=== PATIENT | male | born 1985 | race Caucasian/White ===

== ENCOUNTER 2017-10-23 22:13 | Emergency (ER) | payer SELFPAY ==
[2017-10-23 22:31] VITALS: BP 138/80; PULSE 93; TEMP 98.4; BMI 25.8
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
[2017-10-24] MEDS ORDERED: SODIUM CHLORIDE 0.9% 1000 ML INFUS.BAG IV ONE (01:05)
[2017-10-24 01:24] LABS: BASO % 0.3 % (0-2.0); EOS % 1.7 % (0-4.5); HEMATOCRIT 39.5 % (35.4-49); HEMOGLOBIN 13.1 GM/dL (11.7-16.9); LYMPH % 10.4 % (8-40); MCH 30.7 pg (25.7-33.7); MCHC 33.1 g/dl (32.0-35.9); MEAN CELL VOLUME 92.7 fl (80-96); MEAN PLT VOLUME 8.7 fl (7.5-11.1); MONO % 4.7 % (3.8-10.2); NEUT % 82.9 % (42.8-82.8); PLATELET COUNT 285 K/MM3 (134-434); RBC 4.26 M/mm3 (4.00-5.60); RDW 13.4 % (11.9-15.9); WHITE BLOOD COUNT 14.6 K/mm3 (4.0-10.0)
[2017-10-24 01:50] LABS: ALBUMIN 3.9 g/dl (3.4-5.0); ANION GAP 8 (8-16); BILIRUBIN,TOTAL 0.5 mg/dL (0.2-1.0); BLOOD UREA NITROGEN 11 mg/dL (7-18); CALCIUM 8.7 mg/dL (8.5-10.1); CHLORIDE 104 mmol/L (98-107); CO2 26 mmol/L (21-32); CREATININE 0.9 mg/dL (0.7-1.3); GLUCOSE,RANDOM 95 mg/dL (74-106); POTASSIUM 4.1 mmol/L (3.5-5.1); SGOT/AST 21 U/L (15-37); SGPT/ALT 24 U/L (12-78); SODIUM 138 mmol/L (136-145); TOT PROT 7.8 g/dl (6.4-8.2)
[2017-10-24 01:51] LABS: ALK PHOS 90 U/L (45-117)
[2017-10-24] MEDS ORDERED: AZITHROMYCIN 250 MG TABLET PO ONE (01:53)
[2017-10-24] MEDS ORDERED: AZITHROMYCIN 250 MG TABLET ONE (01:57)
--- NOTE | 2017-10-24 13:26 | EKG ---
Test Reason : Blood Pressure : / mmHG Vent. Rate : 066 BPM Atrial Rate : 066 BPM P-R Int : 166 ms QRS Dur : 088 ms QT Int : 400 ms P-R-T Axes : 048 050 032 degrees QTc Int : 419 ms NORMAL SINUS RHYTHM NORMAL ECG NO PREVIOUS ECGS AVAILABLE Confirmed by MD ANGEL, RAUDEL ([id number]) on 10/24/2017 1:26:23 PM Referred By: Confirmed By:RAUDEL ORTIZ MD
== END 2017-10-24 02:56 | disposition home or self-care (01) ==
LOC: JER 22:13
DX: F12.10 Cannabis abuse, uncomplicated (principal); J06.9 Acute upper respiratory infection, unspecified; F17.210 Nicotine dependence, cigarettes, uncomplicated
CPT/HCPCS: 36415; 71045-TC; 80053; 82272; 85025; 93005; 93010; 99283-25

== ENCOUNTER 2017-10-29 23:43 | Emergency (ER) | payer SELFPAY ==
--- NOTE | 2017-10-30 01:14 | PDOC ---
History of Present Illness - History of Present Illness Initial Comments: 10/30/17 01:21 Patient is a 32M who was here 1 week ago for similar complaint, presents with light-headness. Patient states that he is not feeling well and feels like he is going to faint. He presents with similar symptoms as his last ER visit on the of this month in which he was diagnosed with upper respiratory infection, given a z-pac and released. Today he states that his symptoms have worsened, and also endorses nausea without vomit, abdominal cramping without diarrhea. Denies any urinary complaints. Denies fevers. Admits to slight headache. Denies sick contacts Social Hx: marijuana use <Ning Ward - Last Filed: 10/30/17 01:21> - General History Source: Patient <Anish Guerrero - Last Filed: 10/30/17 05:57> - General Stated Complaint: NAUSEA/VOMITING Time Seen by Provider: 10/30/17 01:09 Past History <Ning Ward - Last Filed: 10/30/17 01:21> - Past Medical History COPD: No - Immunization History Immunization Up to Date: Yes - Suicide/Smoking/Psychosocial Hx Smoking History: Current every day smoker Have you smoked in the past 12 months: Yes Number of Cigarettes Smoked Daily: 2 Hx Alcohol Use: Yes Drug/Substance Use Hx: Yes Substance Use Type: None <Anish Guerrero - Last Filed: 10/30/17 05:57> - Past Medical History Allergies/Adverse Reactions: Allergies Allergy/AdvReac Type Severity Reaction Status Date / Time No Known Allergies Allergy Verified 10/30/17 02:43 Home Medications: Ambulatory Orders Azithromycin [Zithromax 250mg Tablets -] 250 mg PO UTDICT #6 tab 10/24/17 Meclizine HCl 25 mg PO TID #30 tablet 10/30/17 Review of Systems - Review of Systems Comments:: 10/30/17 01:27 CONSTITUTIONAL: Absent: fever, chills, diaphoresis, generalized weakness, malaise, loss of appetite HEENT: Absent: rhinorrhea, nasal congestion, throat pain, throat swelling, difficulty swallowing, mouth swelling, ear pain, eye pain, visual Changes CARDIOVASCULAR: Absent: chest pain, syncope, palpitations, irregular heart rate, lightheadedness , peripheral edema RESPIRATORY: Absent: cough, shortness of breath, dyspnea with exertion, orthopnea, wheezing, stridor, hemoptysis GASTROINTESTINAL: Present: abdominal cramping, nausea Absent: abdominal distension, vomiting, diarrhea, constipation, melena, hematochezia GENITOURINARY: Absent: dysuria, frequency, urgency, hesitancy, hematuria, flank pain, genital pain MUSCULOSKELETAL: Absent: myalgia, arthralgia, joint swelling SKIN: Absent: rash, itching, pallor ENDOCRINE: Absent: unexplained weight gain, unexplained weight loss, heat intolerance, cold intolerance NEUROLOGIC: Present: slight headache, light-headed Absent: focal weakness or paresthesias, unsteady gait, seizure, mental status changes, bladder or bowel incontinence <Ning Ward Last Filed: 10/30/17 01:21> *Physical Exam - Physical Exam Comments: 10/30/17 01:26 GENERAL: Well-appearing, well-nourished. Mild distress. HEENT: Normocephalic, atraumatic. PERRL, EOM intact. CARDIOVASCULAR: Normal S1, S2. Regular rate and rhythm. PULMONARY: Clear to auscultation bilaterally. ABDOMEN: Soft, non-distended, non-tender. EXTREMITIES: Normal ROM in all four extremities. No gross deformities. SKIN: Warm, dry. No rash NEUROLOGICAL: No focal neurological deficits. <Ning Ward Filed: 10/30/17 01:21> ED Treatment Course - LABORATORY CBC & Chemistry Diagram: 10/30/17 01:32 10/30/17 01:37 <Anish Guerrero Last Filed: 10/30/17 05:57> Medical Decision Making - Medical Decision Making 10/30/17 05:56 Dr. Guerrero: The scribe's documentation has been prepared under my direction and personally reviewed by me in its entirery. I confirm that the note above accurately reflects all work, treatment, procedures, and medical decision making performed by me. <Anish Guerrero Filed: 10/30/17 05:57> *DC/Admit/Observation/Transfer - Attestations Scribe Attestion: 10/30/17 01:29 Documentation prepared by Ning Ward, acting as medical science liaison for Anish Guerrero MD. <Ning Ward Filed: 10/30/17 01:21> - Discharge Dispostion Admit: No <CesarAnish - Last Filed: 10/30/17 05:57> Diagnosis at time of Disposition: Lightheaded, Vertigo - Discharge Dispostion Disposition: HOME Condition at time of disposition: Stable - Prescriptions Prescriptions: Meclizine HCl 25 mg PO TID #30 tablet - Referrals Referrals: Marie Rogers MD [Staff Physician] - - Patient Instructions Printed Discharge Instructions: DI for Vertigo Additional Instructions: take medication as directed. Drink plenty of fluids. have plenty of bed rest. Follow up with your doctor or the doctor provided in two days. Print Language: UZBEK - Post Discharge Activity Forms/Work/School Notes: Back to Work
[2017-10-30] MEDS ORDERED: SODIUM CHLORIDE 1,000 ML IV STA (01:17)
[2017-10-30] MEDS ORDERED: ONDANSETRON 4 MG/2 ML VIAL IVPUSH STA (01:18)
[2017-10-30 01:40] LABS: BASO % 0.9 % (0-2.0); EOS % 7.4 % (0-4.5); HEMATOCRIT 38.9 % (35.4-49); HEMOGLOBIN 13.2 GM/dL (11.7-16.9); LYMPH % 32.3 % (8-40); MCH 31.2 pg (25.7-33.7); MCHC 33.8 g/dl (32.0-35.9); MEAN CELL VOLUME 92.4 fl (80-96); MEAN PLT VOLUME 8.1 fl (7.5-11.1); NEUT % 48.4 % (42.8-82.8); PLATELET COUNT 265 K/MM3 (134-434); RBC 4.21 M/mm3 (4.00-5.60); WHITE BLOOD COUNT 6.8 K/mm3 (4.0-10.0)
[2017-10-30 01:58] LABS: INR 1.14 (0.82-1.09); PROTHROMBIN TIME (PATIENT) 12.9 SEC (9.98-11.88)
[2017-10-30 02:08] LABS: ALBUMIN 3.8 g/dl (3.4-5.0); ALK PHOS 86 U/L (45-117); ANION GAP 8 (8-16); BILIRUBIN,TOTAL 0.7 mg/dL (0.2-1.0); BLOOD UREA NITROGEN 11 mg/dL (7-18); CALCIUM 8.6 mg/dL (8.5-10.1); CHLORIDE 103 mmol/L (98-107); CO2 30 mmol/L (21-32); CREATININE 1.1 mg/dL (0.7-1.3); GLUCOSE,RANDOM 87 mg/dL (74-106); MAGNESIUM 2.1 mg/dL (1.8-2.4); POTASSIUM 3.8 mmol/L (3.5-5.1); SGOT/AST 17 U/L (15-37); SGPT/ALT 20 U/L (12-78); SODIUM 141 mmol/L (136-145); TOT PROT 7.4 g/dl (6.4-8.2)
[2017-10-30] MEDS ORDERED: ONDANSETRON 4 MG/2 ML VIAL ONE (02:23)
[2017-10-30 02:42] VITALS: BP 124/96; PULSE 60; TEMP 98.1; BMI 25.8
[2017-10-30] MEDS ORDERED: MECLIZINE HCL 25 MG TABLET (FP) PO STA (04:54)
[2017-10-30] MEDS ORDERED: MECLIZINE HCL 25 MG TABLET (FP) ONE (05:13)
== END 2017-10-30 06:27 | disposition home or self-care (01) ==
LOC: JER 23:43
PROC: 3E033GC Introduction of Other Therapeutic Substance into Peripheral Vein, Percutaneous Approach (ICD-10-PCS; principal; 2017-10-29)
PROC: 3E0337Z Introduction of Electrolytic and Water Balance Substance into Peripheral Vein, Percutaneous Approach (ICD-10-PCS; 2017-10-29)
DX: R42 Dizziness and giddiness (principal); F17.210 Nicotine dependence, cigarettes, uncomplicated
CPT/HCPCS: 36415; 70450-TC; 80053; 83735; 85025; 85610; 87804; 99282-25

== ENCOUNTER 2018-02-28 20:20 | Emergency (ER) | payer SELFPAY ==
[2018-02-28 20:36] VITALS: BP 150/89; PULSE 69; TEMP 98.7; BMI 29.0
[2018-02-28] MEDS ORDERED: SODIUM CHLORIDE 1,000 ML IV STA (20:50)
[2018-02-28] MEDS ORDERED: ACETAMINOPHEN 1000 MG/100 ML VIAL (NON FORMULARY) IVPB ONE (20:50)
[2018-02-28] MEDS ORDERED: METOCLOPRAMIDE HCL INJECTION 10 MG/2 ML VIAL IVPUSH ONE (20:50)
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
[2018-02-28] MEDS ORDERED: METOCLOPRAMIDE HCL INJECTION 10 MG/2 ML VIAL ONE (21:10)
[2018-02-28] MEDS ORDERED: ACETAMINOPHEN INJECTION 100 ML IVPB ONE (21:11)
[2018-02-28 21:45] LABS: BASO % 0.3 % (0-2.0); EOS % 5.1 % (0-4.5); HEMATOCRIT 38.1 % (35.4-49); HEMOGLOBIN 13.1 GM/dL (11.7-16.9); LYMPH % 24.9 % (8-40); MCH 31.4 pg (25.7-33.7); MCHC 34.2 g/dl (32.0-35.9); MEAN CELL VOLUME 91.8 fl (80-96); MEAN PLT VOLUME 9.2 fl (7.5-11.1); MONO % 6.9 % (3.8-10.2); NEUT % 62.8 % (42.8-82.8); PLATELET COUNT 237 K/MM3 (134-434); RBC 4.15 M/mm3 (4.00-5.60); RDW 13.1 % (11.9-15.9); WHITE BLOOD COUNT 8.5 K/mm3 (4.0-10.0)
[2018-02-28 22:01] LABS: ALBUMIN 3.9 g/dl (3.4-5.0); ANION GAP 9 (8-16); BILIRUBIN,TOTAL 0.5 mg/dL (0.2-1.0); BLOOD UREA NITROGEN 13 mg/dL (7-18); CALCIUM 8.3 mg/dL (8.5-10.1); CHLORIDE 106 mmol/L (98-107); CO2 24 mmol/L (21-32); CREATININE 0.9 mg/dL (0.7-1.3); GLUCOSE,RANDOM 82 mg/dL (74-106); MAGNESIUM 2.3 mg/dL (1.8-2.4); POTASSIUM 3.8 mmol/L (3.5-5.1); SGOT/AST 27 U/L (15-37); SGPT/ALT 21 U/L (12-78); SODIUM 139 mmol/L (136-145); TOT PROT 7.4 g/dl (6.4-8.2)
[2018-02-28 22:04] LABS: ALK PHOS 90 U/L (45-117)
[2018-02-28 22:21] LABS: INR 1.08 (0.82-1.09); PROTHROMBIN TIME (PATIENT) 12.2 SEC (9.7-13.0)
[2018-02-28 22:23] LABS: ACTIVATED PTT 47.5 SECONDS (26.9-34.4)
--- NOTE | 2018-03-01 10:13 | EKG ---
Test Reason : Blood Pressure : / mmHG Vent. Rate : 062 BPM Atrial Rate : 062 BPM P-R Int : 176 ms QRS Dur : 088 ms QT Int : 408 ms P-R-T Axes : 035 035 026 degrees QTc Int : 414 ms NORMAL SINUS RHYTHM POSSIBLE LEFT ATRIAL ENLARGEMENT BORDERLINE ECG WHEN COMPARED WITH ECG OF 24-OCT-2017 01:16, NO SIGNIFICANT CHANGE WAS FOUND Confirmed by ELHAM BOCANEGRA MD ([id number]) on 03/01/2018 10:13:23 AM Referred By: Confirmed By:ELHAM BOCANEGRA MD
== END 2018-03-01 00:09 | disposition home or self-care (01) ==
LOC: JER 20:20
PROC: 3E0337Z Introduction of Electrolytic and Water Balance Substance into Peripheral Vein, Percutaneous Approach (ICD-10-PCS; principal; 2018-02-28)
PROC: 3E033NZ Introduction of Analgesics, Hypnotics, Sedatives into Peripheral Vein, Percutaneous Approach (ICD-10-PCS; 2018-02-28)
PROC: 3E033GC Introduction of Other Therapeutic Substance into Peripheral Vein, Percutaneous Approach (ICD-10-PCS; 2018-02-28)
DX: R00.2 Palpitations (principal); E86.0 Dehydration
CPT/HCPCS: 36415; 70450-TC; 71045-TC-FY; 80053; 82550; 82553; 83735; 84484; 85025; 85379; 85610; 85730; 93005; 93010; 99283-25; J0131; J7030

== ENCOUNTER 2018-03-10 14:19 | Emergency (ER) | payer SELFPAY ==
[2018-03-10 14:29] VITALS: TEMP 97.9; BMI 24.2
--- NOTE | 2018-03-10 14:49 | PDOC ---
History of Present Illness - General Chief Complaint: Headache Stated Complaint: Headache Time Seen by Provider: 03/10/18 14:46 - History of Present Illness Initial Comments: 03/10/18 15:49 The patient is a 33 year old male with a history of migraines who presents for evaluation of headache. The patient reports a 4 day history of worsening right sided throbbing headache with associated numbness and tingling to the right sided of his face and right arm prompting his presentation to the ED today for further evaluation. He notes that the headache was preceded by flashing lights within his visual espinal. He notes multiple episodes of non-bilious, non- bloody vomiting as well. He otherwise denies fevers, chills, SOB, chest pain, abdominal pain, weakness, or changes with urination or bowel movements. Past History - Past Medical History Allergies/Adverse Reactions: Allergies Allergy/AdvReac Type Severity Reaction Status Date / Time No Known Allergies Allergy Verified 03/10/18 14:27 Home Medications: Ambulatory Orders NK [No Known Home Medication] 02/28/18 COPD: No - Immunization History Immunization Up to Date: Yes - Suicide/Smoking/Psychosocial Hx Smoking History: Current some day smoker Have you smoked in the past 12 months: Yes Number of Cigarettes Smoked Daily: 2 Information on smoking cessation initiated: No Hx Alcohol Use: Yes Drug/Substance Use Hx: Yes Substance Use Type: None Review of Systems - Review of Systems Comments:: 03/10/18 15:56 Constitutional: No fevers, chills, fatigue, malaise HEENT: No Rhinorrhea, nasal congestion, visual changes Cardiovascular: No chest pain, syncope, palpitations, lightheadedness Respiratory: No Cough, SOB, Hemoptysis, Gastrointestinal: No Abdominal pain, Nausea, Vomiting, Constipation, Diarrhea, Melena Genitourinary: No Dysuria, Frequency, Urgency, Hesitancy, Hematuria, Flank pain Musculoskeletal: No Myalgia, arthralgia Skin: No rashes, itching, bruising, pallor Neurologic: Headache, Tingling, Numbness. No Dizziness, Weakness, Psychiatric: No Hallucinations. No SI or HI *Physical Exam - Vital Signs Last Vital Signs Temp Pulse Resp BP Pulse Ox 97.9 F 68 18 137/103 100 03/10/18 14:27 03/10/18 14:27 03/10/18 14:27 03/10/18 14:27 03/10/18 14:27 - Physical Exam Comments: 03/10/18 15:56 General Appearance: Nourished. In Mild Apparent Distress HEENT: EOMI, GEMA. No Pharyngeal Erythema, Tonsillar Exudate, Tonsillar Erythema Neck: No Cervical Lymphadenopathy Respiratory/Chest: Lungs Clear, Normal Breath Sounds. No Crackles, Rales, Rhonchi, Wheezing Cardiovascular: Regular Rhythm, Regular Rate. No Murmur, Gallops, Rubs Gastrointestinal/Abdominal: Normal Bowel Sounds, Soft. No Guarding, Rebound, Tenderness Musculoskeletal: No CVA Tenderness Extremity: Normal Capillary Refill Integumentary: Normal Color, Dry, Warm Neurologic: folder machine II-XII NML intact, Fully Oriented, Alert, Normal Mood/Affect, Normal Response, Motor Strength 5/5. Normal Finger to Nose and Heel to Hua ED Treatment Course - LABORATORY CBC & Chemistry Diagram: 03/10/18 15:05 03/10/18 15:05 Medical Decision Making - Medical Decision Making 03/10/18 15:57 The patient is a 33 year old male with a history of migraines who presents for evaluation of headache. Differential includes but is not limited to: Migraine Headache, Intracranial process, Infectious, Metabolic derangement. Given the patient's history and physical exam, we will obtain a cbc, cmp, head ct to evaluate further and treat the patient with iv fluids, reglan, benadryl, and iv tylenol in the meantime. We will continue to monitor and reassess while here in the ED. 03/10/18 17:04 CBC, cmp are unremarkable. Head CT is unremarkable as read by our radiologist. The patient reports significant improvement in his symptoms. We are comfortable discharging the patient home with neurology follow up. We discussed the results, plan, and return precautions with the patient who voiced understanding and is agreeable with the plan. *DC/Admit/Observation/Transfer Diagnosis at time of Disposition: Headache Qualifiers: Headache type: unspecified Headache chronicity pattern: unspecified pattern Intractability: not intractable Qualified Code(s): R51 - Headache - Discharge Dispostion Disposition: HOME Condition at time of disposition: Stable Decision to Admit order: No - Referrals Referrals: Bon Malagon MD [Staff Physician] - - Patient Instructions Printed Discharge Instructions: DI for Migraine Additional Instructions: Please return to the ER if you experience concerning or worsening symptoms including worsening headache, vomiting or weakness. Your lab results and imaging studies were normal here in the ER. It is important that you call to schedule a follow up appointment with our neurologist Dr. Malagon within 2-3 days to discuss your ER visit and further management of your symptoms. - Post Discharge Activity
[2018-03-10] MEDS ORDERED: SODIUM CHLORIDE 1,000 ML IV STA (14:55)
[2018-03-10] MEDS ORDERED: METOCLOPRAMIDE HCL INJECTION 10 MG/2 ML VIAL IVPUSH ONE (14:59)
[2018-03-10] MEDS ORDERED: ACETAMINOPHEN 1000 MG/100 ML VIAL (NON FORMULARY) IVPB ONE (14:59)
[2018-03-10] MEDS ORDERED: ACETAMINOPHEN INJECTION 100 ML IVPB ONE (15:08)
[2018-03-10] MEDS ORDERED: METOCLOPRAMIDE HCL INJECTION 10 MG/2 ML VIAL ONE (15:08)
[2018-03-10 15:21] LABS: BASO % 0.5 % (0-2.0); EOS % 0.6 % (0-4.5); HEMATOCRIT 41.5 % (35.4-49); HEMOGLOBIN 14.4 GM/dL (11.7-16.9); LYMPH % 18.5 % (8-40); MCH 32.1 pg (25.7-33.7); MCHC 34.8 g/dl (32.0-35.9); MEAN CELL VOLUME 92.5 fl (80-96); MEAN PLT VOLUME 8.8 fl (7.5-11.1); NEUT % 73.4 % (42.8-82.8); PLATELET COUNT 286 K/MM3 (134-434); RBC 4.48 M/mm3 (4.00-5.60); RDW 13.5 % (11.9-15.9); WHITE BLOOD COUNT 8.6 K/mm3 (4.0-10.0)
[2018-03-10 15:48] LABS: ALBUMIN 4.5 g/dl (3.4-5.0); ANION GAP 8 (8-16); BILIRUBIN,TOTAL 0.6 mg/dL (0.2-1.0); BLOOD UREA NITROGEN 12 mg/dL (7-18); CHLORIDE 104 mmol/L (98-107); CO2 26 mmol/L (21-32); GLUCOSE,RANDOM 96 mg/dL (74-106); POTASSIUM 3.6 mmol/L (3.5-5.1); SGOT/AST 19 U/L (15-37); SGPT/ALT 23 U/L (12-78); SODIUM 138 mmol/L (136-145); TOT PROT 8.1 g/dl (6.4-8.2)
[2018-03-10 15:49] LABS: ALK PHOS 85 U/L (45-117)
[2018-03-10] MEDS ORDERED: KETOROLAC TROMETHAMINE 30 MG/1 ML VIAL IVPUSH ONE (17:58)
[2018-03-10] MEDS ORDERED: KETOROLAC TROMETHAMINE 30 MG/1 ML VIAL ONE (18:03)
[2018-03-10 18:24] VITALS: BP 114/63; PULSE 61
--- NOTE | 2018-03-10 19:09 | PDOC ---
Attending Attestation - Resident Resident Name: Lucas Kowalski - ED Attending Attestation I have performed the following: I have examined & evaluated the patient, The case was reviewed & discussed with the resident, I agree w/resident's findings & plan, Exceptions are as noted <Lynette Rios - Last Filed: 03/10/18 19:09> - HPI HPI: 03/10/18 19:10 The patient is a 33 year old male, with a significant PMH of migraines, who presents to the emergency department with progressively worsening headache beginning four days ago. The patient states the headache began gradually but has been progressively worsening since Friday. The patient states he has also experienced right sided facial numbness and right arm numbness secondary to the headache which he states is unusual of his typical headaches. The patient endorses multiple episodes of nausea with vomiting (non bloody, non bilious) secondary to the headache and states he was unable to tolerate food today which prompted the ED visit. The patient also endorses photophobia and phonophobia. The patient denies chest pain, shortness of breath and dizziness. Denies fever, chills, diarrhea and constipation. Denies dysuria, frequency, urgency and hematuria. Allergies: NKA <Bernardo Ramirez - Last Filed: 03/10/18 19:11> Attestations - Attestations 03/10/18 19:11 Documentation prepared by Bernardo Ramirez, acting as medical lead for Lynette Rios MD. <Bernardo Ramirez - Last Filed: 03/10/18 19:11>
== END 2018-03-10 18:24 | disposition home or self-care (01) ==
LOC: JER 14:19
DX: G43.909 Migraine, unspecified, not intractable, without status migrainosus (principal)
CPT/HCPCS: 36415; 70450-TC; 80053; 85025; 99283-25; J0131; J7030

== ENCOUNTER 2018-07-01 23:07 | Emergency (ER) | payer SELFPAY ==
--- NOTE | 2018-07-01 23:20 | PDOC ---
History of Present Illness - General Stated Complaint: CHEST PAIN Time Seen by Provider: 07/01/18 23:20 History Source: Patient - History of Present Illness Initial Comments: 07/01/18 23:38 Patient is a 33 year old male with no reported PMH who presents to the ED c/o photophobia, lightheadedness and chest pain following ingestion of an unknown pill. Patient states he was having back pain since Friday, so he took a pill given to him by his friend around 5:30 p.m. this evening. At approximately 8 p.m. patient started noticing some sensitivity to light, and felt weak. Patient subsequently felt some chest pain so he came to the ED. Patient denies shortness of breath, abdominal pain, diarrhea/constipation, dysuira/hematuria, recent travel or sick contacts. NKDA Surgical: denies Social: denies toxic habits PMD: None Past History - Past Medical History Allergies/Adverse Reactions: Allergies Allergy/AdvReac Type Severity Reaction Status Date / Time naproxen Allergy Verified 07/02/18 00:13 diphenhydramine AdvReac Verified 07/02/18 01:23 [From Benadryl] Home Medications: Ambulatory Orders Albuterol Sulfate Inhaler - [Ventolin HFA Inhaler -] 1 puff IH PRN PRN #1 inhaler 07/02/18 EPINEPHrine (EPI-PEN 0.3MG) [Epipen 0.3MG -] 0.3 mg IM ASDIR #2 pens 07/02/18 Prednisone [Deltasone] 40 mg PO DAILY #4 tablet 07/02/18 COPD: No - Immunization History Immunization Up to Date: Yes - Suicide/Smoking/Psychosocial Hx Smoking History: Current some day smoker Have you smoked in the past 12 months: Yes Number of Cigarettes Smoked Daily: 2 Hx Alcohol Use: Yes Drug/Substance Use Hx: Yes Substance Use Type: None Review of Systems - Review of Systems Constitutional: No: Chills, Fever HEENTM: No: Blurred Vision, Double Vision Respiratory: Yes: Cough. No: Shortness of Breath, Stridor, Wheezing Cardiac (ROS): No: Chest Pain, Lightheadedness, Palpitations, Syncope ABD/GI: No: Constipated, Diarrhea, Nausea, Vomiting : No: Burning, Dysuria *Physical Exam - Physical Exam General Appearance: Yes: Nourished, Appropriately Dressed HEENT: positive: EOMI, GEMA Neck: positive: Trachea midline, Supple Respiratory/Chest: positive: Wheezing. negative: Labored Respiration, Crackles , Rales Cardiovascular: positive: S1, S2. negative: Edema, JVD Vascular Pulses: Dorsalis-Pedis (R): 2+, Doralis-Pedis (L): 2+ Gastrointestinal/Abdominal: positive: Normal Bowel Sounds, Soft ED Treatment Course - LABORATORY CBC & Chemistry Diagram: 07/01/18 23:42 07/01/18 23:42 Medical Decision Making - Medical Decision Making 07/02/18 00:10 33 year old male with chest pain following Naproxen ingestion. PE significant for B/L wheezing. Will give Steroids, Benadryl for presumed allergic reaction and obtain Troponin x1 and ECG to r/o ACS -- though less likely. Reassess. 07/02/18 00:41 Troponin (-) x1 ECG shows HR 74, NSR TWI in V2 -- not consistent with prior ECG dated 2017. 07/02/18 01:15 Patient s/p Duo Neb x1, continues to wheeze, will administer another treatment and reassess. Plan is for discharge home with 4 day course of steroids. *DC/Admit/Observation/Transfer Diagnosis at time of Disposition: Allergic reaction - Discharge Dispostion Disposition: HOME Condition at time of disposition: Stable Decision to Admit order: No - Prescriptions Prescriptions: Albuterol Sulfate Inhaler - [Ventolin HFA Inhaler -] 1 puff IH PRN PRN #1 inhaler PRN Reason: Short Of Breath/Wheezing EPINEPHrine (EPI-PEN 0.3MG) [Epipen 0.3MG -] 0.3 mg IM ASDIR #2 pens Prednisone [Deltasone] 40 mg PO DAILY #4 tablet - Referrals - Patient Instructions Printed Discharge Instructions: DI for General Allergic Reactions Additional Instructions: You were evaluated today for an reaction to a Naproxen (also called Aleve, Naprosyn) tablet. You may also have an allergy to Benadryl (also called Diphenhydramine). Please check medication labels carefully and refrain from taking these medications in the future. At this time you are safe for discharge. We have sent a prescription to your pharmacy for steroids - please complete the entire prescribed course. We have also prescribed an inhaler (use as necessary for shortness of breath) and an Epi pen (use if you have an allergic reaction) Return to the Emergency Department for any/new/worsening symptoms. Usted fue evaluado hoy para susan reaccin a susan tableta Naproxen (tambin llamaGarrett Caraballo). Tambin puede ser alrgico al Benadryl (tambin llamado Diphenhydramine). Por favor revise cuidadosamente las etiquetas de los medicamentos y evite heather estos medicamentos en el futuro. En lazaro momento, ests a mahesh para la descarga. Hemos enviado susan receta a mercedes farmacia para obtener esteroides. Complete el curso completo. Tambin le hemos recetado un inhalador (use segn sea necesario para la falta de aliento) y un bolgrafo Epi (use si tiene susan reaccin alrgica ) Regrese al Departamento de Emergencia para cualquier sntoma / nuevo / empeoramiento de los sntomas. Print Language: ITALIAN - Post Discharge Activity
[2018-07-01] MEDS ORDERED: SODIUM CHLORIDE 0.9% 500 ML INFUS.BAG IV ONE (23:33)
[2018-07-01] MEDS ORDERED: FAMOTIDINE 20 MG/50 ML IVPB 20 MG/50 ML MG IVPB ONE (23:33)
[2018-07-01 23:39] VITALS: PULSE 89; TEMP 98.5; BMI 32.5
[2018-07-01] MEDS ORDERED: ACETAMINOPHEN 1000 MG/100 ML VIAL (NON FORMULARY) IVPB ONE (23:39)
[2018-07-01] MEDS ORDERED: ACETAMINOPHEN INJECTION 100 ML IVPB ONE (23:50)
[2018-07-01 23:53] LABS: BASO % 0.3 % (0-2.0); EOS % 3.5 % (0-4.5); HEMATOCRIT 40.1 % (35.4-49); HEMOGLOBIN 13.3 GM/dL (11.7-16.9); MCH 31.3 pg (25.7-33.7); MCHC 33.1 g/dl (32.0-35.9); MEAN CELL VOLUME 94.6 fl (80-96); MEAN PLT VOLUME 7.9 fl (7.5-11.1); MONO % 6.1 % (3.8-10.2); NEUT % 78.1 % (42.8-82.8); PLATELET COUNT 264 K/MM3 (134-434); RBC 4.24 M/mm3 (4.00-5.60); RDW 13.1 % (11.9-15.9); WHITE BLOOD COUNT 11.7 K/mm3 (4.0-10.0)
[2018-07-02] MEDS ORDERED: FAMOTIDINE 20 MG/50 ML IVPB 20 MG/50 ML MG IVPB ONE (00:07)
[2018-07-02] MEDS ORDERED: ALBUTEROL SO4 2.5/IPRATROPIUM 0.5 INH SOL 3 ML VIAL.NEB. NEB ONE ×4 (00:07→01:16)
[2018-07-02] MEDS ORDERED: methylPREDNISolone NA SUCC 125 MG/2 ML VIAL IVPB ONE (00:08)
--- NOTE | 2018-07-02 00:10 | PDOC ---
Attending Attestation - Resident Resident Name: Bozena Mosher - ED Attending Attestation I have performed the following: I have examined & evaluated the patient, The case was reviewed & discussed with the resident, I agree w/resident's findings & plan, Exceptions are as noted - HPI HPI: 07/01/18 23:55 The patient is a 33 year old male with a past medical history of migraines who presents to the emergency department with chest pain and SOB. As per patient, he had back pain today after lifting something heavy at work. He took a Naproxen 500mg at 5:30pm. He has never taken this medication before. He notes that at 8pm, he began to have pain localized under the left breast as well as coughing and SOB. He denies any rash anywhere on his body. States that he also vomited once after taking the pill. Denies swelling of his tongue or lips. He denies any recent fevers, chills, headache or dizziness. He denies any recent dysuria, frequency, urgency or hematuria. Allergies: NKA Past surgical history: None reported. Social History: Occasional smoker. Occasional marijuana usage. - Physicial Exam PE: 07/02/18 00:09 GENERAL: Awake, alert, and fully oriented, in no acute distress. HEAD: No signs of trauma EYES: PERRLA, EOMI, sclera anicteric, conjunctiva clear ENT: Auricles normal inspection, hearing grossly normal, nares patent, oropharynx clear without exudates. Moist mucosa NECK: Nontender, no stepoffs, Normal ROM, supple, no lymphadenopathy, JVD, or masses LUNGS: + bilateral expiratory wheezes HEART: Regular rate and rhythm, normal S1 and S2, no murmurs, rubs or gallops ABDOMEN: Soft, nontender, normoactive bowel sounds. No guarding, no rebound. No masses EXTREMITIES: Normal range of motion, no edema. No clubbing or cyanosis. No cords, erythema, or tenderness NEUROLOGICAL: Cranial nerves II through XII intact. 5/5 strength and sensation in all extremities, Normal speech, normal gait, normal cerebellar function SKIN: Warm, Dry, normal turgor, no rashes or lesions noted. - Medical Decision Making 07/02/18 00:10 33 M with chest pain + SOB and vomiting after taking naproxen. Found to have wheezing on exam. Possible allergic reaction, as pt has never taken this medication before. - Labs - CXR - Benadryl, prednisone, nebulizers 07/02/18 02:02 Labs wnl CXR clear Pt reassessed - now with clear lungs - states he feels much better Will DC with prednisone, albuterol, and epi pen Instructed to avoid naproxen
[2018-07-02] MEDS ORDERED: methylPREDNISolone NA SUCC 125 MG/2 ML VIAL ONE (00:13)
[2018-07-02 00:30] LABS: ALBUMIN 3.8 g/dl (3.4-5.0); ALK PHOS 84 U/L (45-117); ANION GAP 7 MMOL/L (8-16); BILIRUBIN,TOTAL 0.4 mg/dL (0.2-1); BLOOD UREA NITROGEN 11 mg/dL (7-18); CALCIUM 8.5 mg/dL (8.5-10.1); CHLORIDE 104 mmol/L (98-107); CO2 26 mmol/L (21-32); GLUCOSE,RANDOM 87 mg/dL (74-106); POTASSIUM 3.8 mmol/L (3.5-5.1); SGOT/AST 23 U/L (15-37); SGPT/ALT 20 U/L (13-61); SODIUM 137 mmol/L (136-145); TOT PROT 7.1 g/dl (6.4-8.2)
[2018-07-02 02:30] VITALS: BP 110/78
--- NOTE | 2018-07-02 09:35 | EKG ---
Test Reason : Blood Pressure : / mmHG Vent. Rate : 074 BPM Atrial Rate : 074 BPM P-R Int : 168 ms QRS Dur : 086 ms QT Int : 404 ms P-R-T Axes : 053 038 032 degrees QTc Int : 448 ms NORMAL SINUS RHYTHM POSSIBLE LEFT ATRIAL ENLARGEMENT BORDERLINE ECG WHEN COMPARED WITH ECG OF 28-FEB-2018 21:09, NO SIGNIFICANT CHANGE WAS FOUND Confirmed by SAQIB SELBY MD ([id number]) on 07/02/2018 9:34:35 AM Referred By: Confirmed By:SAQIB SELBY MD
== END 2018-07-02 02:14 | disposition home or self-care (01) ==
LOC: JER 23:07
PROC: 3E0F7GC Introduction of Other Therapeutic Substance into Respiratory Tract, Via Natural or Artificial Opening (ICD-10-PCS; principal; 2018-07-01)
PROC: 3E0F7GC Introduction of Other Therapeutic Substance into Respiratory Tract, Via Natural or Artificial Opening (ICD-10-PCS; 2018-07-01)
PROC: 3E033GC Introduction of Other Therapeutic Substance into Peripheral Vein, Percutaneous Approach (ICD-10-PCS; 2018-07-01)
PROC: 3E033GC Introduction of Other Therapeutic Substance into Peripheral Vein, Percutaneous Approach (ICD-10-PCS; 2018-07-01)
PROC: 3E033NZ Introduction of Analgesics, Hypnotics, Sedatives into Peripheral Vein, Percutaneous Approach (ICD-10-PCS; 2018-07-01)
PROC: 3E0333Z Introduction of Anti-inflammatory into Peripheral Vein, Percutaneous Approach (ICD-10-PCS; 2018-07-01)
DX: R07.89 Other chest pain (principal); R06.2 Wheezing; T39.315A Adverse effect of propionic acid derivatives, initial encounter
CPT/HCPCS: 36415; 71046-TC-FY; 80053; 82550; 84484; 85025; 93005; 93010; 99282-25; J0131; J7620

== ENCOUNTER 2018-07-16 18:45 | Emergency (ER) | payer SELFPAY ==
[2018-07-16] MEDS ORDERED: ALBUTEROL SO4 2.5/IPRATROPIUM 0.5 INH SOL 3 ML VIAL.NEB. NEB ONE (19:34)
--- NOTE | 2018-07-16 19:37 | PDOC ---
Rapid Medical Evaluation Time Seen by Provider: 07/16/18 19:31 Medical Evaluation: Allergies Allergy/AdvReac Type Severity Reaction Status Date / Time naproxen Allergy Verified 07/02/18 00:13 diphenhydramine AdvReac Verified 07/02/18 01:23 [From Caprice] 07/16/18 19:34 The patient complaints of: difficulty breathing, weakness, and left sided chest pain On brief exam: anxious appearing, mild exp wheeze to left base, no reproducible cp The patient was ordered for: duoneb, ekg, cxr The patient will proceed to the ED Discharge Disposition - Diagnosis Chest pain - Referrals - Patient Instructions - Post Discharge Activity
[2018-07-16 19:40] VITALS: BMI 30.7
[2018-07-16] MEDS ORDERED: ACETAMINOPHEN 500 MG TABLET (FP) PO ONE (21:56)
--- NOTE | 2018-07-16 22:01 | PDOC ---
History of Present Illness - General Chief Complaint: Chest Pain Stated Complaint: PAIN, ACUTE Time Seen by Provider: 07/16/18 19:31 - History of Present Illness Initial Comments: 33 year old male with PMH of cigarette smoking and daily marijuana use presenting with two months of intermittent left sided chest pain and occasional visual symptoms. Patient states that all of these symptoms started a few months prior with a headache where he noticed numbness and tingling of his right arm. He came to our ED and had WNL labs with a negative head CT. Since then he has had similar symptoms and has been to our ED as well as other EDs a few times for evaluation without any known positive findings. Describes his current chest pain as intermittent, occasionally worse when moving, non radiating, occasionally worse with a deep breath, and not disturbing his sleep or daily activities. States that he sometimes feel a little funny and sees floaters across his eyes. Has not syncopizewd or fallen but has had to sit down a few times. He admitted originally to daily marijuana use but denied any other rug use. However, he later admitted to cocaine usage when pushed. States that he had "one bump" yesterday. Patient denies fevers, chills, nausea, vomiting, diarrhea, current headache. No recent travel or long periods of travel. 07/16/18 21:55 Past History - Past Medical History Allergies/Adverse Reactions: Allergies Allergy/AdvReac Type Severity Reaction Status Date / Time naproxen Allergy Verified 07/16/18 19:40 diphenhydramine AdvReac Verified 07/16/18 19:40 [From Benadryl] Home Medications: Ambulatory Orders Albuterol Sulfate Inhaler - [Ventolin HFA Inhaler -] 1 puff IH PRN PRN #1 inhaler 07/02/18 EPINEPHrine (EPI-PEN 0.3MG) [Epipen 0.3MG -] 0.3 mg IM ASDIR #2 pens 07/02/18 Prednisone [Deltasone] 40 mg PO DAILY #4 tablet 07/02/18 COPD: No - Immunization History Immunization Up to Date: Yes - Suicide/Smoking/Psychosocial Hx Smoking History: Current some day smoker Have you smoked in the past 12 months: Yes Number of Cigarettes Smoked Daily: 2 Information on smoking cessation initiated: No 'Breaking Loose' booklet given: 07/01/18 Hx Alcohol Use: Yes Drug/Substance Use Hx: Yes Substance Use Type: None, Marijuana Review of Systems - Review of Systems Constitutional: No: Diaphoresis, Fever, Loss of Appetite HEENTM: No: Eye Pain, Blurred Vision, Tearing Respiratory: No: Cough, Orthopnea, Shortness of Breath Cardiac (ROS): Yes: Chest Pain. No: Edema, Irregular Heart Rate ABD/GI: No: Constipated, Diarrhea, Nausea, Vomiting : No: Dysuria, Discharge, Frequency Musculoskeletal: No: Back Pain, Joint Pain, Joint Swelling Integumentary: No: Change in Color, Lesions, Lumps Neurological: Yes: Paresthesia, Tingling. No: Headache, Numbness Psychiatric: No: Anxiety, Depression Endocrine: No: Excessive Sweating, Flushing, Intolerance to Cold Hematologic/Lymphatic: No: Anemia, Blood Clots, Easy Bleeding, Easy Bruising *Physical Exam - Vital Signs Last Vital Signs Temp Pulse Resp BP Pulse Ox 98.8 F 88 18 131/92 100 07/16/18 19:37 07/16/18 19:37 07/16/18 19:37 07/16/18 19:37 07/16/18 19:37 - Physical Exam General Appearance: Yes: Nourished, Appropriately Dressed. No: Apparent Distress HEENT: positive: EOMI, GEMA, Normal ENT Inspection, Normal Voice Neck: positive: Trachea midline, Normal Thyroid, Supple. negative: Tender, Rigid Respiratory/Chest: positive: Chest Tender (reproducible tenderness over the left side of his chest), Lungs Clear, Normal Breath Sounds. negative: Respiratory Distress, Accessory Muscle Use Cardiovascular: positive: Regular Rhythm, Regular Rate Gastrointestinal/Abdominal: positive: Normal Bowel Sounds, Flat, Soft. negative : Tender Lymphatic: negative: Adenopathy, Tenderness Musculoskeletal: positive: Normal Inspection. negative: CVA Tenderness, Decreased Range of Motion, Muscle Spasm Extremity: positive: Normal Capillary Refill, Normal Inspection, Normal Range of Motion. negative: Tender, Pedal Edema, Swelling, Calf Tenderness Integumentary: positive: Normal Color, Dry, Warm Neurologic: positive: conventional underwriter II-XII NML intact, Fully Oriented, Alert, Normal Mood/ Affect, Normal Response, Motor Strength 5/5, Responsive, Finger to Nose, Other ( No cerbellar signs, normal gait). negative: EOM Palsy, Facial Droop, Numbness, Sensory Deficit, Confused, Disoriented, Depressed Affect ED Treatment Course - LABORATORY CBC & Chemistry Diagram: 07/16/18 21:30 07/16/18 21:30 - RADIOLOGY Radiology Studies Ordered: Category Date Time Status CHEST PA & LAT [RAD] Stat Radiology 07/16/18 20:47 Taken - Medications Given in the ED: ED Medications Discontinued Medications Generic Name Dose Route Start Last Admin Trade Name Russ PRN Reason Stop Dose Admin Albuterol/Ipratropium 1 amp 07/16/18 19:34 07/16/18 20:09 Duoneb - NEB 07/16/18 19:35 1 amp ONCE ONE Administration Medical Decision Making - Medical Decision Making 33 year old with history of marijuana and cocaine use presenting with occasinal visual symptoms light headedness and chest pain. Chest pain appears MSK in nature as patient admits it is worse with movement and it is TTP. Patient has no cardiac or family risk factors. Troponin and EKG WNL EKG rate 77, VT 160, QRS 84, QTc 423, normal axis and no ST or T wave changes. Visual symptoms not concerning for neurological etiology Visual exam 20/20 and no FND or cerebellar signs. Gait completely normal. Patient's symptoms improved after 2 L NS, Tylenol and reassurance. 07/17/18 00:11 *DC/Admit/Observation/Transfer Diagnosis at time of Disposition: Lightheadedness Chest pain Qualifiers: Chest pain type: unspecified Qualified Code(s): R07.9 - Chest pain, unspecified - Discharge Dispostion Disposition: HOME Condition at time of disposition: Improved Decision to Admit order: No - Referrals Referrals: [facility] [place] [Provider Group] - Patient Instructions Printed Discharge Instructions: DI for Atypical Chest Pain Additional Instructions: Please stay hydrated, please make an appointment with our clinic as soon as possible. You need to STOP using drugs!! Cocaine can kill you!!!! Please return to the ED if you have any worsening chest pain, headache, or lightheadedness. - Post Discharge Activity
[2018-07-16] MEDS ORDERED: SODIUM CHLORIDE 0.9% 500 ML INFUS.BAG IV ONE (22:03)
[2018-07-16] MEDS ORDERED: METOCLOPRAMIDE HCL 10 MG TABLET (FP) PO ONE ×2 (22:03→22:12)
[2018-07-16] MEDS ORDERED: ACETAMINOPHEN 325 MG TABLET (FP) ONE (22:11)
[2018-07-16 22:15] LABS: BASO % 0.4 % (0-2.0); EOS % 1.5 % (0-4.5); HEMATOCRIT 43.6 % (35.4-49); HEMOGLOBIN 14.6 GM/dL (11.7-16.9); LYMPH % 9.1 % (8-40); MCH 31.4 pg (25.7-33.7); MCHC 33.5 g/dl (32.0-35.9); MEAN CELL VOLUME 93.6 fl (80-96); MEAN PLT VOLUME 8.3 fl (7.5-11.1); MONO % 4.4 % (3.8-10.2); NEUT % 84.6 % (42.8-82.8); PLATELET COUNT 276 K/MM3 (134-434); RBC 4.66 M/mm3 (4.00-5.60); RDW 13.2 % (11.9-15.9); WHITE BLOOD COUNT 11.2 K/mm3 (4.0-10.0)
[2018-07-16 22:26] LABS: URINE APPEARANCE CLEAR; URINE BILIRUBIN NEGATIVE (<2.0 mg/dL); URINE COLOR LTYELLOW; URINE GLUCOSE (UA) NEGATIVE (NEGATIVE); URINE KETONE NEGATIVE (NEGATIVE); URINE LEUK ESTERASE NEGATIVE (NEGATIVE); URINE NITRITE NEGATIVE (NEGATIVE); URINE PROTEIN NEGATIVE (NEGATIVE); URINE UROBILINOGEN NEGATIVE mg/dL (0.2-1.0)
[2018-07-16 22:28] LABS: EPI CELLS RARE /HPF (FEW); URINE MUCUS RARE
[2018-07-16 22:41] LABS: METHADONE, UR NEGATIVE ng/ml (CUTOFF=300); OPIATES, URI NEGATIVE ng/ml (CUTOFF=300); PHENCYCLIDINE,URINE NEGATIVE ng/ml (CUTOFF=25); URINE AMPHETAMINES NEGATIVE ng/ml (CUTOFF=500); URINE BARBITURATES NEGATIVE ng/ml (CUTOFF=200); URINE BENZODIAZEPINES NEGATIVE ng/ml (CUTOFF=200)
[2018-07-16 22:41] LABS: ALBUMIN 4.2 g/dl (3.4-5.0); ALK PHOS 97 U/L (45-117); ANION GAP 6 MMOL/L (8-16); BILIRUBIN,TOTAL 0.4 mg/dL (0.2-1); BLOOD UREA NITROGEN 13 mg/dL (7-18); CALCIUM 9.2 mg/dL (8.5-10.1); CHLORIDE 107 mmol/L (98-107); CO2 22 mmol/L (21-32); CREATININE 0.9 mg/dL (0.55-1.3); GLUCOSE,RANDOM 87 mg/dL (74-106); POTASSIUM 3.9 mmol/L (3.5-5.1); SGOT/AST 16 U/L (15-37); SGPT/ALT 20 U/L (13-61); SODIUM 135 mmol/L (136-145)
[2018-07-16 22:42] LABS: COCAINE, UR POSITIVE ng/ml (CUTOFF=300)
--- NOTE | 2018-07-17 00:04 | PDOC ---
Attending Attestation - Resident Resident Name: FantaArnolhubertrobby - ED Attending Attestation I have performed the following: I have examined & evaluated the patient, The case was reviewed & discussed with the resident, I agree w/resident's findings & plan, Exceptions are as noted - HPI HPI: 07/17/18 00:03 33yoM w/ active cocaine abuse presents w/ chest pain x today after using cocaine yesterday. Multiple ED presentations for chest pain with negative workups, pt is very reluctant to admit to cocaine use. AF, VSS NAD, well appearing RRR CTABL 33yoM w/ CP after cocaine use. - ekg nonischemic - labs w/ troponin - if all unremarklbe, DC
[2018-07-17] MEDS ORDERED: KETOROLAC TROMETHAMINE 60 MG/2 ML VIAL ONE (00:55)
[2018-07-17 05:11] VITALS: BP 122/74; PULSE 82; TEMP 98.2
--- NOTE | 2018-07-17 09:46 | EKG ---
Test Reason : Blood Pressure : / mmHG Vent. Rate : 077 BPM Atrial Rate : 077 BPM P-R Int : 160 ms QRS Dur : 084 ms QT Int : 374 ms P-R-T Axes : 036 036 026 degrees QTc Int : 423 ms NORMAL SINUS RHYTHM NORMAL ECG WHEN COMPARED WITH ECG OF 02-JUL-2018 00:02, NO SIGNIFICANT CHANGE WAS FOUND Confirmed by MORELIA FELIX MD ([id number]) on 07/17/2018 9:45:48 AM Referred By: Confirmed By:MORELIA FELIX MD
== END 2018-07-17 00:27 | disposition home or self-care (01) ==
LOC: JER 18:45
PROC: 3E0F7GC Introduction of Other Therapeutic Substance into Respiratory Tract, Via Natural or Artificial Opening (ICD-10-PCS; principal; 2018-07-16)
DX: R07.89 Other chest pain (principal); R42 Dizziness and giddiness; F14.10 Cocaine abuse, uncomplicated; F12.10 Cannabis abuse, uncomplicated
CPT/HCPCS: 36415; 71046-TC-FY; 80053; 80307; 81003; 81015; 84484; 85025; 93005; 93010; 99282-25; J7620